=== PATIENT | male | born 2005 | race Hispanic/Latino ===

== ENCOUNTER 2023-04-14 08:36 | Outpatient (CLI) | payer BC ==
[2023-04-14] MEDS ORDERED: Iopamidol-370 76% 500 ML MDV (1 ML CHARGE) ONE (11:49)
== END 2023-04-14 08:37 | disposition home or self-care (01) ==
LOC: BICCT 08:36
PROVIDERS: ATTEND Urology
DX: R36.9 Urethral discharge, unspecified (principal); R31.29 Other microscopic hematuria; R80.8 Other proteinuria
CPT/HCPCS: 74178; Q9967